=== PATIENT | male | born 1975 | race Caucasian/White ===

== ENCOUNTER → 2018-11-23 | Outpatient (CLI) | payer OTHER ==
[2018-11-23 08:20] LABS: ABSOLUTE NEUTROPHILS 3.5 thou/uL (1.4-8.2); BASOPHILS 1.1 % (0.0-2.0); EOSINOPHILS 9.5 % (0.0-3.0); HEMATOCRIT 47.3 % (42.0-52.0); HEMOGLOBIN 16.2 gm/dL (14.0-18.0); LYMPHOCYTES 20.5 % (24.0-44.0); MCH 31.1 pg (26.0-34.0); MCHC 34.2 g/dL (28.0-37.0); MCV 90.9 fL (80.0-100.0); MONOCYTES 7.2 % (1.0-8.0); PLATELET COUNT 267 thou/uL (150-400); POLYS 61.7 % (36.0-66.0); RDW 12.9 % (10.5-14.5); WBC 5.6 thou/uL (4.0-11.0)
[2018-11-23 08:33] LABS: ALBUMIN 4.3 g/dL (3.4-5.0); CALCIUM 9.1 mg/dL (8.5-10.1); CREATININE 1.1 mg/dL (0.7-1.3); TOTAL BILIRUBIN 0.3 mg/dL (<0.1-1.0); TOTAL PROTEIN 7.8 g/dL (6.4-8.2)
== END ==
LOC: CAT 07:54
PROVIDERS: Internal Medicine Cardiovascular Disease
DX: Z01.810 Encounter for preprocedural cardiovascular examination (principal); I48.91 Unspecified atrial fibrillation

== ENCOUNTER 2018-12-07 06:39 | Observation (INO) | payer OTHER ==
[~2018-12-07] VITALS: Ht 177.8 cm; Wt 99.8 kg
--- NOTE | ~2018-12-07 | P ---
[facility] [place] [address] PROCEDURE REPORT Name: SHEEBA NEGRON Rashad Room #: 214-P [facility] Lester Barros#: [id number] Admission: 12/07/18 ������������������ Attend Phys: Yair Frazier MD Discharge: 12/08/18 ������������������ Date of : 73 Report #: [id number] THIS REPORT FOR: //name// CC: Humberto Frazier PREOPERATIVE DIAGNOSIS: Paroxysmal atrial fibrillation. POSTOPERATIVE DIAGNOSIS: Paroxysmal atrial fibrillation. HISTORY: The patient currently is a 43-year-old male with a history of ASD, status post closure at age 8 with new onset paroxysmal atrial fibrillation, who is here for AFib ablation. PROCEDURES PERFORMED: 1. Atrial fibrillation ablation, CPT code 14841. 2. Programmed stimulation and pacing after IV drug infusion, CPT code 29374. 3. 3D mapping, CPT code 17799. 4. Intracardiac echo, CPT code 24711. ANESTHESIA: The patient underwent general anesthesia with no anesthesia related complications. DESCRIPTION OF PROCEDURE: The patient underwent informed consent. We discussed the details of the procedure including the risks, which include but not limited to bleeding, vascular damage, cardiac perforation as well as stroke or [place]. He understood these risks and is willing to proceed. The patient was brought to the EP laboratory in fasting and sedated state, prepped and draped in a sterile fashion. Next, I obtained access to the right femoral vein x 3, placing an 8, 9 and 7-[place] short sheath using the modified Seldinger technique. Next, under fluoroscopy, a decapolar catheter was attempted to be placed in the coronary sinus. On intracardiac ultrasound, I could verify the location of his coronary sinus and I could get the first 4 distal electrodes into the CS, but I could not advance this any further. I attempted this for several minutes and it is possible that he has a stenosis of the coronary sinus due to his prior cardiac surgery as a child. Therefore, a decapolar catheter was not placed in the coronary sinus for the procedure and left in the high right atrium. The intracardiac ultrasound catheter was placed into the right atrium and detailed 3D geometry of the left atrium was created with specific emphasis of the two left-sided veins and the 2 right-sided veins. The right superior vein did have two branches, one that was anterior, another one that was slightly posterior. Next, the patient was systemically heparinized and a transseptal was performed using an SL1 sheath and a [place] needle. His transseptal was [facility] [address] [place] [address] PROCEDURE REPORT Name: SHEEBA NEGRON Room #: 214-P [facility].#: [id number] Admission: 12/07/18 ������������������ Attend Phys: Yair Frazier MD Discharge: 12/08/18 ������������������ Date of : 73 Report #: [id number] straightforward and there were no issues related to his prior ASD surgical closure. Next, I placed the Lasso catheter into the left atrium and created a detailed 3D geometry of the left atrium using CARTO. I then exchanged for the cryo-sheath and the cryoablation balloon. The left superior pulmonary vein underwent a 4-minute, followed by 3-minute freeze. The vein isolated during the first freeze within 110 seconds. The left inferior pulmonary vein underwent a 4-minute, followed by 3-minute freeze. This vein isolated during the second freeze within 40 seconds. I then turned my attention to the right-sided veins and I performed phrenic nerve pacing from the decapolar catheter placed at the level of the subclavian vein. In the right superior pulmonary vein, I performed a 4-minute freeze, followed by a 3-minute freeze and it appeared that the vein was isolated. I then turned my attention to the right inferior pulmonary vein. I performed a 3-minute freeze and a 200-second freeze. The vein isolated within 70 seconds of the first freeze. Next, I removed the cryoablation balloon and placed my Lasso catheter back in the left atrium. All veins appear to be isolated except for the superior branch of the right superior pulmonary vein. The lower branch of the right superior pulmonary vein appeared to be isolated. Therefore, we went back into the heart with the cryoablation balloon and I was able to place my balloon, specifically at this superior branch. I performed a 4-minute freeze in this vein and then this vein was now clearly isolated. I repeated my voltage map and there was evidence of wide circumferential ablation of these 4 pulmonary veins. POST-ABLATION EP TEST: Post-ablation AV block was noted at 380 milliseconds. AV luz ERP was noted at 310 milliseconds at a [address] cycle length. There was no evidence of AFib, atrial flutter or SVT. Isoproterenol infusion was initiated at 2 mcg per minute and AV block was noted at 270 milliseconds. Atrial ERP was noted at 210 milliseconds at [address] cycle length. Double atrial extrastimuli were delivered, and I could not induce any AFib, atrial flutter or SVT. As such, the procedure was concluded. The patient received systemic protamine and once ACT was within acceptable range, all catheters and sheaths were pulled and hemostasis was obtained. Intracardiac ultrasound was utilized to verify the absence of a pericardial effusion. CONCLUSIONS: 1. Successful AFib ablation with isolation of the pulmonary veins. 2. Normal EP study with no inducible arrhythmias on or off isoproterenol post-ablation. ��������������������������������������������� ���������������������������������������� By: ��������������������������������������������� [id number] Yair Frazier MD /william
[2018-12-07 07:10] VITALS: BP 135/90
[2018-12-07] MEDS ORDERED: METOPROLOL SUCC50 MG PO (07:15)
[2018-12-07] MEDS ORDERED: VENTOLIN HFA 1818 GM INH (07:16)
[2018-12-07] MEDS ORDERED: XARELTO20 MG PO (07:16)
[2018-12-07 07:24] LABS: ABSOLUTE NEUTROPHILS 3.2 thou/uL (1.4-8.2); BASOPHILS 0.9 % (0.0-2.0); EOSINOPHILS 8.5 % (0.0-3.0); HEMATOCRIT 46.2 % (42.0-52.0); HEMOGLOBIN 15.6 gm/dL (14.0-18.0); LYMPHOCYTES 28.5 % (24.0-44.0); MCHC 33.8 g/dL (28.0-37.0); MCV 91.7 fL (80.0-100.0); MONOCYTES 8.6 % (1.0-8.0); PLATELET COUNT 292 thou/uL (150-400); POLYS 53.5 % (36.0-66.0); RBC 5.03 mil/uL (4.50-6.00); RDW 13.1 % (10.5-14.5); WBC 5.9 thou/uL (4.0-11.0)
[2018-12-07 07:28] LABS: POTASSIUM 3.5 mmol/L (3.5-5.1)
[2018-12-07 07:34] LABS: ALBUMIN 4.5 g/dL (3.4-5.0); TOTAL BILIRUBIN 0.7 mg/dL (<0.1-1.0); TOTAL PROTEIN 8.2 g/dL (6.4-8.2)
[2018-12-07 07:35] LABS: APTT 27.4 Seconds (24.5-32.8); PROTIME 10.2 Seconds (9.3-11.4)
[2018-12-07] MEDS ORDERED: FLECAINIDE ACET50 M2 PO (16:08)
[2018-12-07] MEDS ORDERED: FLONASE 0.05%50 MCG NASAL (16:09)
--- NOTE | 2018-12-07 16:48 | NUR ---
PT TO THE UNIT POST ABALATION. ORIENTED TO ROOM AND BEDSPACE - GROIN SITE AND VITAL SIGNS STABLE - EDVIN DIET AND FLUIDS. PT TO REMAIN ON BEDREST UNTIL 1814 - PIERRE CATH MAY BE REMOVED ONCE PT AMBULATORY AND GROIN SITE STABLE. NO CO'S OF PAIN OR NAUSEA. STATESCOMFORTALE AT THE PRESENT TIME,
[2018-12-07 20:01] VITALS: BP 119/68
[2018-12-07 23:47] VITALS: BP 118/63
--- NOTE | 2018-12-08 02:54 | NUR ---
ASSESSMENT DOCUMENTED.PT BEEN RESTING IN NO ACUTE DISTRESS.A/OX4.VSS.UP AD MALAIKA WITH STEADY GAIT.S/P AFIB ABLATION.RIGHT GROIN DRESSING WITH DRY PINK DRAINAGE.NO ACTIVE BLEEDING NOTED.SINUS RHYTHM ON MONITOR WITH HR IN 70S BPM.UP AD MALAIKA,AMBULATING ON THE HALLWAYS,GAIT STEADY.TYLENOL GIVEN FOR RIGHT GROIN SORENESS.PIERRE CATHETER REMOVED,PT TOLERATED PROCEDURE,VOIDING ADEQUATELY.POSSIBLE DISCHARGE TODAY.WILL CONT TO MONITOR PER POC.
[2018-12-08 05:47] VITALS: BP 125/67
[2018-12-08 05:57] VITALS: BP 125/67
[2018-12-08 07:15] VITALS: BP 133/68
[2018-12-08 09:14] VITALS: BP 133/68
--- NOTE | 2018-12-08 09:35 | NUR ---
ASSUMED CARE AT 0700, SHIFT ASSESSMENT DONE, MEDS GIVEN, VSS. CATH SITE IS CLEAN, DRY, INTACT, NO HEMATOMA, DRESSING INTACT. DR PINTO AND NAA WATKINS SAW THE PATIENT THIS AM AND OK'D HIM FOR DISCHARGE. PERIPHERAL IV WAS TAKEN OUT, TELE WAS REMOVED, DISCHARGE PAPER WORK GIVEN. PATIENT LEFT WITH NURSING STAFF AT 0930.
== END 2018-12-08 09:40 | disposition home or self-care (01) ==
LOC: CATH 06:39 → 2N 13:41
PROVIDERS: ADMIT Internal Medicine Cardiovascular Disease
DX: I48.0 Paroxysmal atrial fibrillation (principal); Q21.1 Atrial septal defect
CPT/HCPCS: 62110; 62900; 70005